=== PATIENT | male | born 1995 | race African-American/Black ===

== ENCOUNTER 2021-10-28 05:53 | Emergency (ER) | payer BC, SELFPAY | END 2021-10-28 06:40 | disposition home or self-care (01) | LOC: ERS 05:53 | DX: M54.50 Low back pain, unspecified (principal); F17.210 Nicotine dependence, cigarettes, uncomplicated | CPT/HCPCS: 99283 ==

== ENCOUNTER 2021-11-04 06:05 | Emergency (ER) | payer SELFPAY | END 2021-11-04 07:05 | disposition home or self-care (01) | LOC: ERS 06:05 | DX: M54.6 Pain in thoracic spine (principal); F17.210 Nicotine dependence, cigarettes, uncomplicated | CPT/HCPCS: 99281 ==